=== PATIENT | male | born 1995 | race Asian ===

== ENCOUNTER 2024-01-13 21:06 | Emergency (ER) | payer MEDICARE, SELFPAY ==
[2024-01-13 21:16] VITALS: BP 154/97
--- NOTE | 2024-01-13 22:11 | ED.GENMED ---
History of Present Illness
General
Chief Complaint: Dental Problem
Source: patient and other
Exam Limitations: none
Time Seen by Provider: 01/13/24 21:56
History of Present Illness
History of Present Illness:
Pleasant 28-year-old male that presents to the emergency department with bleeding from his tooth after tooth extraction today. He states around 4 PM he was at the dentist and had tooth #7 pulled. He did get some sutures. The bleeding was still
present at discharge. He was told it would stop. It never stopped. Patient is not on any blood thinners. He denies any new trauma to the tooth. He has had other teeth pulled before and states that he had no issues with bleeding.
Past History
Past History
ED Past Medical History: Other (Eczema)
ED Past Surgical History: None
Social History
Tobacco: Non-smoker
Personal: Single
Living: with family
Employment: Student
Review of Systems
Review of Systems
Allergies reviewed?: Yes
Other source history: other
All Other Systems: ROS reviewed and negative except as documented in HPI and ROS
EENT: Reports other (bleeding)
Psychiatric: Reports anxiety
Phy Exam
General Physical Exam
General Presentation: well appearing and mild distress
General age: appears stated age
General Skin: warm and dry
General Habitus: normal
General Mental: alert
General Hydration: appears well hydrated
ENT Exam
Additional ENT: Tooth #7 socket is bleeding. There is a suture in place.
Pulmonary Exam
Pulmonary Exam: no respiratory distress and no cough
Gastrointestinal Exam
Gastrointestinal Exam: soft and non distended
Neurological Exam
Neurological Exam: alert, oriented x3 and no motor deficits
Musculoskeletal Exam
Musculoskeletal Exam: full ROM, no edema and neuro vasc intact
Skin Exam
Skin Exam: normal color and warm/dry
Course
Orders/Labs/Results
Orders:
Orders
01/13/24 22:30
Tranexamic Acid 1,000 mg .ROUTE .STK-MED ONE
Vital Signs
Initial and Last Documented VS:
Initial Vital Signs
Pulse Resp BP Pulse Ox
85 18 154/97 100
01/13/24 21:16 01/13/24 21:16 01/13/24 21:16 01/13/24 21:16
Last Documented Vital Signs
Pulse Resp BP Pulse Ox
85 18 154/97 100
01/13/24 21:16 01/13/24 21:16 01/13/24 21:16 01/13/24 21:16
*Pulse Oximetry
Patient hypoxic: no
*Critical Care Note
Total Time (30-74mins, 75-104mins- exclusive of procedures): Not Applicable
Data Reviewed
Source: patient and family
Update Note
Update Note:
Heme con dressing applied. It did not stop the bleeding.
01/13/2024 2301 PM:Tranexamic acid applied to a cotton pledget.
01/13/2024 2331 PM: Patient started bleeding again. Surgical foam applied to socket
01/14/2024 0025 AM: Rechecked patient again. Bleeding has completely stopped. Surgical volume and cotton pledgets seem to work. Patient wishes to be discharged. He will have a follow-up appointment with his dentist in the morning.
ED Attending Note
-
Portions of this chart may have been created with voice recognition software.� Occasional wrong word or��sound alike� substitutions may have occurred due to the inherent limitations of voice recognition software.
Discharge Plan
Departure
Patient Disposition: Home (Routine Discharge)
Date of Disposition: 01/14/24
Time of Disposition: 00:26
Patient with high blood pressure during this ER visit?: Yes
Condition: Good
Discharge Problem:
Post-op bleeding, Bleeding post tooth extraction
Prescriptions:
No Action
prednisone 50 MG tablet
50 mg PO Daily Qty: 4 0RF
famotidine [Pepcid AC] 20 MG tablet
20 mg PO Daily Qty: 4 0RF
triamcinolone acetonide [Kenalog] 60 GM cream
60 gm TP BID Qty: 60 0RF
triamcinolone acetonide 1 APPLIC ointment
60 gm TP BID 7 Days 0RF
penicillin V potassium 500 MG tablet
500 mg PO BID Qty: 14 0RF
Referrals:
NONE,* [Family Provider] -
Activity Restrictions/Additional Instructions:
It was a pleasure meeting you and taking part in your care. We hope for your continued healing and wellness.
Please read discharge instructions in their entirety. However, they are for general education and may not describe your exact diagnosis at discharge. Information on your ER visit and medical conditions were discussed with you along with appropriate
follow up information...
If indicated, please take your medications as instructed and indicated on discharge paperwork.
Please schedule a follow up appointment as directed. Call to schedule an appointment
Please return to the emergency department with ANY change in, persisting, or worsening of symptoms. If any of your symptoms do not improve, or persist, or become more severe within 6-12 hours, please return to the emergency department for further
care.
Please return to the emergency department if you develop a headache, neck pain/stiffness, fever greater than 100.4F, chest pain, shortness of breath, persistent nausea, vomiting, slurred speech, difficulty walking, numbness/tingling, weakness, signs
of infection or any other symptoms that are worrisome to you.
If you have any questions or concerns please do not hesitate to call the Hospital at or E-mail me directly at [email or web address]
Reduced-Fee Dental Clinics
[facility]: [phone] call for appt. No walk ins
[facility]:
[facility]: [phone]
[facility] [phone]
[facility]: . No walk ins
[facility]: [phone]
[facility]: [phone]
[facility]: 1-
[facility]: [phone]
[facility]: [phone]
[facility] Sliding scale, Free for uninsured
[facility]: [phone]
[facility] ex [phone]
[facility] [facility] [place] [address]
[facility]:
[facility]:
Interventions
Interventions:
*Risk Screen - Suicide Last Done: 01/13/24 21:14
*General Assessment Last Done: 01/13/24 21:14
*Neglect/Abuse Screening Last Done: 01/13/24 21:14
*ED COVID-19 Vaccine History Last Done: 01/13/24 21:14
Discharge Date and Time
Print Language: TAJIK
[2024-01-14 00:27] VITALS: BP 135/95
[2024-01-14] MEDS: TRANEXAMIC ACID 1000 MG INH (00:30)
== END 2024-01-14 00:35 | disposition home or self-care (01) ==
LOC: EMR 21:06
PROVIDERS: EMERGENCY PHYSICIAN Student in an Organized Health Care Education/Training Program
DX: L76.22 Postprocedural hemorrhage of skin and subcutaneous tissue following other procedure (principal); Z98.818 Other dental procedure status
CPT/HCPCS: 99282